=== PATIENT | female | born 1980 | race Hispanic/Latino ===

== ENCOUNTER → 2017-10-20 | Day surgery (SDC) | payer OTHER ==
[~2017-10-20] MED LIST: AMBIEN5 MG PO; FENTANYL CITRATE/PF 100MCG/2 ML INJ ONE; HUMIRA40 MG/0.1; HUMIRA40 MG/0.8; HYOSCYAMINE SULFATE 0.5 MG/ML AMP ONE; LACTULOSE20 GM/30 M PO; LIDOCAINE HCL 2% LOCAL INJ 5 ML SDV VIAL INJ ONE; MIDAZOLAM HCL 2 MG/2 ML VIAL ONE; PROPOFOL IV EMULSION 10 MG/ML 50 ML VIAL ONE; ULTRAM50 MG PO
--- NOTE | 2017-10-20 18:18 | Operative Report ---
DATE OF PROCEDURE: October 20, 2017 PROCEDURE PERFORMED: 1. Esophagogastroduodenoscopy. 2. Colonoscopy. INDICATIONS FOR ESOPHAGOGASTRODUODENOSCOPY: Heartburn indigestion. INDICATIONS FOR COLONOSCOPY: Progressive constipation. MEDICATION: Patient was done under MAC. Please see anesthesiologist's note. PROCEDURE: With the patient in the left lateral decubitus position, the flexible fiberoptic Olympus gastroscope was introduced into the esophagus under direct visualization without any difficulty. There was some patchy erythema noted in the distal esophagus. The scope was then advanced with ease into the stomach, and the mucosa overlying the antrum and the body revealed some patchy erythema and mild to moderate edema along with some erosions noted in the antrum. Biopsies were obtained and sent to stain for H. pylori. Pylorus appeared to be of normal contour and shape, was intubated with ease, and the scope was advanced all the way to the 2nd portion of the duodenum. The scope was then withdrawn slowly, and the mucosa overlying the proximal 2nd portion and the duodenal bulb appeared to be within normal limits. The scope was then withdrawn back into the stomach and retroflexed, and the mucosa overlying the fundus and the cardia appeared to be within normal limits. The scope was then straightened out. It was subsequently withdrawn. Patient tolerated the procedure well. IMPRESSION: 1. Mild distal esophagitis. 2. Gastritis, erosive, biopsied. Biopsies sent to stain for H. pylori. PLAN: Follow up histology. Initiate Protonix 40 mg 1 p.o. q.a.m. a.c. Patient was then turned around and after adequate lubrication of the anal canal, a flexible fiberoptic Olympus colonoscope was inserted into the rectum with ease and advanced all the way to the cecum. Mucosa overlying the cecum appeared to be within normal limits. The ileocecal valve was intubated, and the scope was advanced into the terminal ileum. Biopsies were obtained. The scope was then withdrawn back into the colon. It was then withdrawn slowly, and the mucosa overlying the ascending, transverse, descending, sigmoid and rectum grossly appeared to be within normal limits. The scope was then retroflexed into the distal rectum and small internal hemorrhoids were noted, none of which was actively bleeding. The scope was then straightened out and was subsequently withdrawn. Patient tolerated procedure well. IMPRESSION: Small internal hemorrhoids, none actively bleeding. PLAN: Follow up histology. Initiate high-fiber low-fat diet. Initiate high-fiber supplement. Start Tonio 145 mcg 1 charlie griffith Job#: [id number] EV
== END | disposition home or self-care (01) ==
LOC: OR 14:39
PROVIDERS: ATTEND Internal Medicine Gastroenterology
DX: K29.50 Unspecified chronic gastritis without bleeding (principal); K25.9 Gastric ulcer, unspecified as acute or chronic, without hemorrhage or perforation; K20.9 Esophagitis, unspecified; K64.8 Other hemorrhoids; K59.00 Constipation, unspecified; N20.0 Calculus of kidney; M19.90 Unspecified osteoarthritis, unspecified site; M45.0 Ankylosing spondylitis of multiple sites in spine; M79.7 Fibromyalgia; Z80.0 Family history of malignant neoplasm of digestive organs
CPT/HCPCS: 43239; 45378; 81025; J1980; J2001; J2250; 45380

== ENCOUNTER → 2017-10-24 | Outpatient (CLI) | payer OTHER ==
[~2017-10-24] MED LIST changes: -FENTANYL CITRATE/PF 100MCG/2 ML INJ ONE; -HYOSCYAMINE SULFATE 0.5 MG/ML AMP ONE; +IOPAMIDOL 370 MG/ML 200 ML INFUS..BTL INJ ONE; -LIDOCAINE HCL 2% LOCAL INJ 5 ML SDV VIAL INJ ONE; -MIDAZOLAM HCL 2 MG/2 ML VIAL ONE; -PROPOFOL IV EMULSION 10 MG/ML 50 ML VIAL ONE; +SODIUM CHLORIDE 0.9% 50ML 50 ML ONE
--- NOTE | 2017-10-24 12:14 | Diagnostic Imaging Report ---
PROCEDURE:CT ABDOMEN AND PELVIS WITH CONTRAST COMPARISON:None. INDICATIONS:Abdominal pain; constipation. TECHNIQUE: Routine protocol Volumetric CT abdomen and pelvis after administration of 100 mL Isovue 370 intravenous contrast and 900 mL positive enteric contrast. Multiplanar reformatted images. FINDINGS: Clear lung bases. No pleural effusions. Normal heart size. Liver: Normal Gallbladder: Normal Pancreas: Normal Spleen: Low attenuation nodules, statistically likely benign cysts or hemangiomas. Adrenal glands: Normal Kidneys: 0.6 cm too small to characterize hypodensity on the right, statistically likely a cyst. Otherwise, normal bilaterally. Ureters and urinary bladder: Normal Uterus and adnexa: Normal. Crenated right ovarian cyst. Bowel: Normal caliber. Normal appendix. Moderate large bowel stool volume without evidence of obstruction or significant distention. Peritoneum: Normal Vasculature: Normal caliber. Lymph nodes: Normal Skeleton: Intact; normal. Soft tissues: Normal CONCLUSION: 1. Moderate stool volume without evidence of obstruction. 2. Crenated right ovarian cyst. [facility] Dictated by: Gonzalo Tam M.D. on 10/24/2017 at 12:16 Electronically approved by: Gonzalo Tam M.D. on 10/24/2017 at 12:16
== END ==
LOC: CT 09:13
PROVIDERS: ATTEND Internal Medicine Gastroenterology
DX: R10.9 Unspecified abdominal pain (principal); M45.9 Ankylosing spondylitis of unspecified sites in spine
CPT/HCPCS: 74177; Q9967

== ENCOUNTER → 2020-11-06 | Outpatient (CLI) | payer OTHER ==
[~2020-11-06] MED LIST changes: -IOPAMIDOL 370 MG/ML 200 ML INFUS..BTL INJ ONE; -SODIUM CHLORIDE 0.9% 50ML 50 ML ONE
== END ==
LOC: RAD 07:54
PROVIDERS: ATTEND Internal Medicine Gastroenterology
DX: K58.1 Irritable bowel syndrome with constipation (principal); K59.04 Chronic idiopathic constipation
CPT/HCPCS: 74018

== ENCOUNTER → 2020-11-24 | Day surgery (SDC) | payer OTHER ==
[~2020-11-24] MED LIST changes: +ARAVA20 MG PO; +CYCLOBENZAPRINE10 MG PO; +GABAPENTIN400 MG PO; +GLUCAGON FOR INJ 1 MG VIAL ONE; +HYOSCYAMINE SULFATE 0.5 MG/ML INJ ONE; +LIDOCAINE HCL 2% LOCAL INJ 5 ML SDV VIAL INJ ONE; +PANTOPRAZOLE SO40 MG PO; +POVIDONE IODINE 0.05% 0.05 % ML PO ONE; +PROPOFOL IV EMULSION 10 MG/ML 20 ML VIAL ONE; +RELAFEN DS1000 MG PO; +VIT D PO
[2020-11-24 13:25] VITALS: BP 116/71
== END | disposition home or self-care (01) ==
LOC: OR 10:01
PROVIDERS: ATTEND Internal Medicine Gastroenterology
DX: Z12.11 Encounter for screening for malignant neoplasm of colon (principal); D12.4 Benign neoplasm of descending colon; K57.30 Diverticulosis of large intestine without perforation or abscess without bleeding; K58.1 Irritable bowel syndrome with constipation; K59.04 Chronic idiopathic constipation; K64.8 Other hemorrhoids; K29.70 Gastritis, unspecified, without bleeding; K21.9 Gastro-esophageal reflux disease without esophagitis; N20.0 Calculus of kidney; M79.7 Fibromyalgia; M45.9 Ankylosing spondylitis of unspecified sites in spine; R03.0 Elevated blood-pressure reading, without diagnosis of hypertension; L71.9 Rosacea, unspecified; F32.9 Major depressive disorder, single episode, unspecified; Z01.812 Encounter for preprocedural laboratory examination; Z20.822 Contact with and (suspected) exposure to COVID-19; Z68.26 Body mass index [BMI] 26.0-26.9, adult; Z80.0 Family history of malignant neoplasm of digestive organs
CPT/HCPCS: 45380; 81025; J1610; J1980; J2001; J2704; U0002; 45378

== ENCOUNTER → 2024-01-16 | Day surgery (SDC) | payer OTHER ==
[2024-01-11 13:59] LABS: BASOPHILS # (AUTO) 0.1 (0.0-0.1); BASOPHILS % 1.1 % (0.0-1.0); EOSINOPHILS # (AUTO) 0.1 (0.0-0.4); EOSINOPHILS % 1.8 % (0.0-6.0); HEMATOCRIT 32.8 % (34.2-44.1); LYMPHOCYTES # (AUTO) 1.4 (1.0-3.2); LYMPHOCYTES % 22.4 % (18.0-39.1); MEAN CORPUSCULAR HEMOGLOBIN 31.8 pg (28-32); MEAN CORPUSCULAR HGB CONC 30.5 g/dL (31-35); MEAN CORPUSCULAR VOLUME 104.5 fL (81-99); MONOCYTES # (AUTO) 0.5 (0.2-0.8); MONOCYTES % 7.2 % (4.4-11.3); NEUTROPHILS # (AUTO) 4.2 (2.1-6.9); NEUTROPHILS % 67.2 % (38.7-80.0); PLATELET COUNT 208 x10e3/uL (140-360); RED BLOOD COUNT 3.14 x10e6/uL (3.6-5.1); RED CELL DISTRIBUTION WIDTH 15.7 % (11.7-14.4); WHITE BLOOD COUNT 6.21 x10e3/uL (4.8-10.8)
[2024-01-11 14:12] LABS: INR 0.89; PROTHROMBIN TIME 12.7 seconds (11.9-14.5)
[2024-01-11 14:13] LABS: PARTIAL THROMBOPLASTIN TIME 28.6 seconds (23.8-35.5)
[~2024-01-16] MED LIST changes: +ASPIRIN81 MG PO; +BACLOFEN10 MG PO; +BACTRIM DS TAB1 EACH PO; +CLIND PH-BENZOY45 GM TOP; +COSENTYX125 MG/5 M INJ; +DAPSONE100 MG PO; +ESMOLOL HCL 100MG/10ML 10 MG/ML VIAL ONE; +FENTANYL CITRATE/PF 100MCG/2 ML INJ ONE; -HYOSCYAMINE SULFATE 0.5 MG/ML INJ ONE; +METOCLOPRAMIDE HCL 10 MG/2ML VIAL ONE; +OZEMPIC2 MG/0.75 SC; -POVIDONE IODINE 0.05% 0.05 % ML PO ONE; +PREDNISONE5 MG PO; +PROPOFOL IV EMULSION 10 MG/ML 50 ML VIAL IV ONE; +TAZORAC TOP; +TEMAZEPAM15 MG PO; +[UNRECOGNIZED DRUG - OTHER] TOP
[2024-01-16] MEDS: LACTATED RINGER'S 1,000 ML ONE (14:48)
[2024-01-16 16:50] VITALS: BP 105/78; PULSE 94; RESP 16; O2SAT 98
== END | disposition home or self-care (01) ==
LOC: OR 14:17
PROVIDERS: ATTEND Internal Medicine Gastroenterology
DX: K29.70 Gastritis, unspecified, without bleeding (principal); Z86.010 Personal history of colon polyps; K31.7 Polyp of stomach and duodenum; K31.89 Other diseases of stomach and duodenum; K20.90 Esophagitis, unspecified without bleeding; K21.9 Gastro-esophageal reflux disease without esophagitis; K58.9 Irritable bowel syndrome, unspecified; K62.5 Hemorrhage of anus and rectum; K57.30 Diverticulosis of large intestine without perforation or abscess without bleeding; K59.09 Other constipation; K64.8 Other hemorrhoids; L71.9 Rosacea, unspecified; M45.9 Ankylosing spondylitis of unspecified sites in spine; M79.7 Fibromyalgia; G89.29 Other chronic pain; N20.0 Calculus of kidney; M19.90 Unspecified osteoarthritis, unspecified site; Z01.812 Encounter for preprocedural laboratory examination; Z79.82 Long term (current) use of aspirin; Z79.85 Long-term (current) use of injectable non-insulin antidiabetic drugs; Z79.899 Other long term (current) drug therapy; Z80.0 Family history of malignant neoplasm of digestive organs
CPT/HCPCS: 36415; 43239; 43251; 45378; 81025; 85025; 85610; 85730; J1610; J2001; J2470; J2704 ×2; J2765; J3010; J7121; 43235